=== PATIENT | male | born 1980 | race Caucasian/White ===

== ENCOUNTER 2016-05-07 07:19 | Emergency (ER) | payer BC, SELFPAY ==
[~2016-05-07] VITALS: Ht 182.9 cm; Wt 86.2 kg
[2016-05-07] MEDS ORDERED: IBUP80TA PO (08:52)
[2016-05-07 08:58] VITALS: BP 141/88
--- NOTE | 2016-05-07 10:16 | REP ---
RIGHT RIB SERIES: Five views of the right ribs are performed. No fracture or bone lesion is seen of the right ribs. An accompanying view of the chest demonstrates no acute infiltrate. There is no pneumothorax or pleural effusion identified. The heart is normal in size. IMPRESSION: No evidence of right rib fracture. Signed by Blas Francisco MD 05/07/2016 08:30 P
== END 2016-05-07 08:59 | disposition home or self-care (01) ==
LOC: M ED 07:55
DX: S23.41XA Sprain of ribs, initial encounter (principal); X58.XXXA Exposure to other specified factors, initial encounter; Y92.89 Other specified places as the place of occurrence of the external cause; Y93.89 Activity, other specified; Y99.8 Other external cause status

== ENCOUNTER 2016-08-27 17:19 | Emergency (ER) | payer SELFPAY ==
[~2016-08-27] VITALS: Ht 182.9 cm; Wt 89.5 kg
[2016-08-27 17:19] VITALS: BP 132/84
[~2016-08-27 17:19] MED LIST: IBUP80TA PO
[2016-08-27] MEDS ORDERED: NAPROXEN 250 MG TAB PO ONE (18:00)
[2016-08-27] MEDS ORDERED: PRED20TA PO (18:52)
[2016-08-27] MEDS ORDERED: NAPR500T PO (18:52)
--- NOTE | 2016-08-27 19:08 | REP ---
LEFT FOOT SERIES COMPLETE: 08/27/2016. Clinical history: Pain and swelling left foot. Findings: Four views of the foot show subtalar joints intact. No heel spurs. Talus and calcaneus unremarkable. Distal tibia and fibula without gross fracture. Tarsal bones and articulations and metatarsals are intact. MTP and IP joints as well as phalanges also grossly intact. Impression: 1. No visible or displaced fracture, avulsion, subluxation, foreign body or other acute bony finding. No heel spurs. Signed by Efraín Menard MD 08/27/2016 08:50 P
== END 2016-08-27 19:05 | disposition home or self-care (01) ==
LOC: M ED 19:01
DX: M65.272 Calcific tendinitis, left ankle and foot (principal); Z87.891 Personal history of nicotine dependence

== ENCOUNTER 2017-03-05 15:51 | Emergency (ER) | payer BC, SELFPAY ==
[2017-03-05] MEDS: PERCOCET 5MG/325MG TAB PO (17:57)
== END 2017-03-05 18:55 | disposition home or self-care (01) ==
LOC: M ED 15:51
DX: M25.551 Pain in right hip (principal); Z87.891 Personal history of nicotine dependence
CPT/HCPCS: 73502

== ENCOUNTER 2018-01-11 13:06 | Emergency (ER) | payer SELFPAY, BC | END 2018-01-11 15:23 | disposition home or self-care (01) | LOC: M ED 13:06 | DX: M25.562 Pain in left knee (principal); X58.XXXA Exposure to other specified factors, initial encounter; Y92.099 Unspecified place in other non-institutional residence as the place of occurrence of the external cause; Y93.01 Activity, walking, marching and hiking; Y99.9 Unspecified external cause status; R51 Headache; Z96.652 Presence of left artificial knee joint | CPT/HCPCS: 73560 ==

== ENCOUNTER 2018-08-09 07:55 | Emergency (ER) | payer SELFPAY ==
[~2018-08-09] VITALS: Ht 185.4 cm; Wt 96.2 kg
[~2018-08-09 07:55] MED LIST changes: +IBUP-1022 PO; +NAPR-837 PO; +PERC5TAB12 PO; +PRED20TA PO
[2018-08-09] MEDS ORDERED: NS 1,000 ML IV ONE (08:30)
[2018-08-09 08:40] LABS: BASO % 0.7 % (0.0-1.0); EOS # 0.1 10^3/uL (0.0-0.50); EOS % 2.3 % (0.0-3.0); HEMATOCRIT 43.5 % (42.0-52.0); HEMOGLOBIN 15.2 g/dl (13.5-17.5); LYMPH # 1.8 10^3/uL (1.5-4.5); LYMPH % 29.5 % (24.0-44.0); MEAN CORPUSCULAR HGB CONC 34.9 g/dl (32.0-36.5); MEAN CORPUSCULAR VOLUME 88.8 fl (80.0-96.0); MONO # 0.7 10^3/uL (0.0-0.8); MONO % 11.4 % (0.0-5.0); NEUTROPHILS # 3.4 10^3/uL (1.8-7.7); NEUTROPHILS % 55.9 % (36.0-66.0); PLATELET COUNT, AUTOMATED 233 10^3/uL (150-450)
[2018-08-09 09:19] LABS: ALBUMIN 4.1 GM/DL (3.2-5.2); ALT/SGPT 61 U/L (12-78); BILIRUBIN,DIRECT 0.1 MG/DL (0.0-0.2); BILIRUBIN,TOTAL 0.5 MG/DL (0.2-1.0); BLOOD UREA NITROGEN 11 MG/DL (7-18); CALCIUM LEVEL 8.8 MG/DL (8.5-10.1); CARBON DIOXIDE LEVEL 24 MEQ/L (21-32); CHLORIDE LEVEL 108 MEQ/L (98-107); CPK CREATINE PHOSPHOKINASE 527 U/L (39-308); CREATININE FOR GFR 0.89 MG/DL (0.70-1.30); GLOMERULAR FILTRATION RATE > 60.0 (>60); GLUCOSE, FASTING 97 MG/DL (70-100); LIPASE 81 U/L (73-393); MB/CK RELATIVE INDEX 0.51 (< OR =4); NT-PRO BNP < 5 PG/ML (<125); POTASSIUM SERUM 3.7 MEQ/L (3.5-5.1); SODIUM LEVEL 142 MEQ/L (136-145); TOTAL PROTEIN 7.4 GM/DL (6.4-8.2); TROPONIN I < 0.02 NG/ML (< 0.10)
--- NOTE | 2018-08-09 09:23 | REP ---
CHEST, SINGLE VIEW: There is no evidence of acute infiltrate. No pleural effusion is seen. The heart is normal in size. The mediastinal silhouette is unremarkable. The visualized osseous structures are intact. IMPRESSION: No acute pulmonary disease. Electronically Signed by Blas Francisco MD 08/10/2018 08:52 A
[2018-08-09] MEDS ORDERED: ISOVUE-370 76% 100ML VIAL (Q9967) As Ordered ONE (09:24)
[2018-08-09] MEDS ORDERED: KETOROLAC 30 MG/ML VIAL (J1885) IV ONE (10:15)
--- NOTE | 2018-08-09 10:32 | REP ---
CT ANGIOGRAM CHEST: CT ANGIO CHEST: TECHNIQUE: Axial contrast enhanced images from the thoracic inlet to the upper abdomen using 100 mL Isovue 370 intravenous contrast material with multiplanar reformations. There is no CT evidence of pulmonary embolism. There is no thoracic aortic aneurysm or dissection. There is no mediastinal, hilar, or chest wall lymphadenopathy. Heart is normal in size. There is no pleural or pericardial effusions. There is focal fatty infiltration of the liver along the fissure for the ligamentum teres. Lung show no infiltrate. IMPRESSION: No CT evidence of pulmonary embolism or aortic dissection. No other acute finding. Electronically Signed by Blas Francisco MD 08/10/2018 08:55 A
[2018-08-09] MEDS ORDERED: IBUP-1022 PO (10:40)
[2018-08-09] MEDS ORDERED: ALBU17IN2 INH (10:43)
[2018-08-09 10:59] VITALS: BP 123/83
--- NOTE | 2018-08-09 20:00 | ECGEPIP ---
[facility] - ED Test Date: 2018-08-09 Pat Name: ROLDAN ALFREDO Department: Room: - Gender: Male [employer]: pmo : [id number] Requested By: Karen Collazo Order Number: [id number] Reading MD: Karen Collazo Measurements Intervals [place] Rate: 87 P: 68 MT: 156 QRS: 9 QRSD: 100 T: QT: 372 QTc: 449 Interpretive Statements SINUS RHYTHM WITH OCCASIONAL VENTRICULAR PREMATURE COMPLEXES NO PRIOR FOR COMPARISON Electronically Signed on 08-09-2018 19:59:59 EDT by Karen Collazo
== END 2018-08-09 11:06 | disposition home or self-care (01) ==
LOC: M ED 07:55
DX: J40 Bronchitis, not specified as acute or chronic (principal); R09.1 Pleurisy; Z87.891 Personal history of nicotine dependence
CPT/HCPCS: 71045; 71275; 80048; 80076; 82550; 82553; 83690; 83880; 84443; 84484; 85025; 87040; 93005; 93041; 94760; 96361; 96374; 99284; J1885; Q9967

== ENCOUNTER 2019-09-21 13:02 | Emergency (ER) | payer MEDICAID, SELFPAY ==
[~2019-09-21] VITALS: Ht 182.9 cm; Wt 100.3 kg
[~2019-09-21 13:02] MED LIST changes: +PROV108A INH
[2019-09-21] MEDS ORDERED: NS 1,000 ML IV ONE (13:30)
--- NOTE | 2019-09-21 14:18 | REP ---
CHEST, SINGLE VIEW: There is no evidence of acute infiltrate. No pleural effusion is seen. The heart is normal in size. The mediastinal silhouette is unremarkable. The visualized osseous structures are intact. IMPRESSION: No acute pulmonary disease. Electronically Signed by Blas Francisco MD 09/24/2019 09:40 A
[2019-09-21 16:37] VITALS: BP 140/91
== END 2019-09-21 17:02 | disposition home or self-care (01) ==
LOC: M ED 13:02
DX: J06.9 Acute upper respiratory infection, unspecified (principal); I10 Essential (primary) hypertension

== ENCOUNTER → 2020-05-05 | Outpatient (CLI) | payer BC ==
--- NOTE | 2020-05-05 14:07 | REP ---
INDICATION: R SHOULDER INJURY COMPARISON: None. TECHNIQUE: Internal rotation, external rotation, and Y view. FINDINGS: No acute fracture or dislocation. The acromioclavicular and glenohumeral joints are intact. No periarticular calcifications or degenerative changes are appreciated. Sub acromial space is normal. Surrounding soft tissues are unremarkable. IMPRESSION: Normal right shoulder radiographs. <Electronically signed by David Blanton > 05/05/20 0422
== END ==
LOC: M RAD 13:26
PROVIDERS: ATTEND Physician Assistant Medical
DX: S40.011A Contusion of right shoulder, initial encounter (principal); X58.XXXA Exposure to other specified factors, initial encounter; Y92.9 Unspecified place or not applicable

== ENCOUNTER 2020-08-03 12:12 | Emergency (ER) | payer BC ==
[~2020-08-03] VITALS: Ht 182.9 cm; Wt 100.0 kg
[2020-08-03] MEDS ORDERED: GABA-1171 (12:28)
[2020-08-03] MEDS ORDERED: CYCLOBENZAPRINE 10MG TABLET PO ONE (13:05)
[2020-08-03] MEDS ORDERED: KETOROLAC 30 MG/ML 1ML VIAL IM ONE (13:05)
--- NOTE | 2020-08-03 14:21 | REP ---
INDICATION: pain, fall COMPARISON: None. TECHNIQUE: AP and lateral views of the lumbosacral spine. FINDINGS: Two views of the lumbosacral spine demonstrate satisfactory alignment and lordosis without acute fracture / compression injury or subluxation. IMPRESSION: 1. No acute fracture / compression injury or subluxation. <Electronically signed by David Blanton > 08/03/20 [id number]
--- NOTE | 2020-08-03 14:22 | REP ---
INDICATION: pain, fall COMPARISON: None. TECHNIQUE: Frontal view of the chest with four views of the right hemithorax. FINDINGS: Frontal view of the chest demonstrates no acute cardiopulmonary process, contusion, effusion, or pneumothorax. Multiple views of the right hemithorax demonstrates no acute rib fracture/injury or pathology. IMPRESSION: Normal rib series. <Electronically signed by David Blanton > 08/03/20 0925
--- NOTE | 2020-08-03 14:22 | REP ---
INDICATION: pain, fall COMPARISON: None. TECHNIQUE: AP, lateral, and swimmers views. FINDINGS: Alignment and kyphosis is maintained. Vertebral bodies intact. No acute fracture / compression injury or subluxation. No degenerative changes. Paravertebral soft tissues are normal. IMPRESSION: Normal thoracic spine series. <Electronically signed by David Blanton > 08/03/20 [id number]
[2020-08-03] MEDS ORDERED: CYCL5TAB PO (14:46)
[2020-08-03] MEDS ORDERED: KETO10TAB PO (14:46)
[2020-08-03 15:08] VITALS: BP 134/92
== END 2020-08-03 15:13 | disposition home or self-care (01) ==
LOC: M ED 12:12
DX: M54.9 Dorsalgia, unspecified (principal)
CPT/HCPCS: 71101; 72072; 72100; 99283; J1885

== ENCOUNTER 2023-01-23 20:34 | Emergency (ER) | payer BC, SELFPAY ==
[~2023-01-23] VITALS: Ht 182.9 cm; Wt 93.8 kg
[~2023-01-23 20:34] MED LIST changes: +ALBU6.7H6 INH; +CYCL5TAB PO; +GABA-1171; +KETO10TAB PO; -PROV108A INH
[2023-01-23 20:35] VITALS: BP 147/92; TEMP 98.2; O2SAT 98
[2023-01-23 22:01] LABS: BASO % 0.2 % (0.0-1.0); EOS % 0.4 % (0.0-3.0); HEMATOCRIT 44.5 % (42.0-52.0); HEMOGLOBIN 15.3 g/dl (13.5-17.5); LYMPH # 1.6 10^3/uL (1.5-5.0); MEAN CORPUSCULAR HEMOGLOBIN 30.4 pg (27.0-33.0); MEAN CORPUSCULAR HGB CONC 34.4 g/dl (32.0-36.5); MEAN CORPUSCULAR VOLUME 88.5 fl (80.0-96.0); MONO # 0.5 10^3/uL (0.0-0.8); MONO % 4.9 % (2.0-8.0); NEUTROPHILS # 7.4 10^3/uL (1.5-8.5); NEUTROPHILS % 77.2 % (36.0-66.0); PLATELET COUNT, AUTOMATED 249 10^3/uL (150-450); RED BLOOD COUNT 5.03 10^6/uL (4.30-6.10); WHITE BLOOD COUNT 9.6 10^3/uL (4.0-10.0)
[2023-01-23 22:24] LABS: LIPASE 35 U/L (12-53)
[2023-01-23 22:26] LABS: ALBUMIN 4.1 G/DL (3.2-5.2); ALKALINE PHOSPHATASE 92 U/L (46-116); ALT/SGPT 36 U/L (7.0-40); AST/SGOT 20 U/L (<34); BILIRUBIN,DIRECT < 0.1 MG/DL (<0.4); BILIRUBIN,TOTAL 0.3 MG/DL (0.3-1.2); BLOOD UREA NITROGEN 11 MG/DL (9-23); CALCIUM LEVEL 8.9 MG/DL (8.5-10.1); CARBON DIOXIDE LEVEL 26 MMOL/L (20-31); CHLORIDE LEVEL 106 MMOL/L (98-107); GLOMERULAR FILTRATION RATE > 60.0 (>60); GLUCOSE, FASTING 110 MG/DL (60-100); POTASSIUM SERUM 3.8 MMOL/L (3.5-5.1); SODIUM LEVEL 141 MMOL/L (136-145); TOTAL PROTEIN 7.2 G/DL (5.7-8.2)
[2023-01-23] MEDS ORDERED: NS 1,000 ML IV ONE (22:55)
[2023-01-23 23:08] LABS: CK-MB VALUE MASS < 1.0 NG/ML (<3.6)
[2023-01-23 23:10] LABS: CPK CREATINE PHOSPHOKINASE 274 U/L (46-171); MB/CK RELATIVE INDEX 0.36 (< OR =4)
[2023-01-23] MEDS ORDERED: ISOVUE-370 76% 100ML VIAL As Ordered ONE (23:40)
[2023-01-24 00:34] LABS: CK-MB VALUE MASS < 1.0 NG/ML (<3.6)
[2023-01-24 00:35] LABS: CPK CREATINE PHOSPHOKINASE 245 U/L (46-171)
[2023-01-24] MEDS ORDERED: cefTRIAXone SOD 1 GM in D5W MINI-BAG PLUS 50 ML IV ONE (03:35)
[2023-01-24] MEDS ORDERED: CEFD300C42 PO (03:41)
== END 2023-01-24 04:52 | disposition home or self-care (01) ==
LOC: M ED 20:34
DX: N10 Acute pyelonephritis (principal); S22.000A Wedge compression fracture of unspecified thoracic vertebra, initial encounter for closed fracture
CPT/HCPCS: 71275; 74177; 80048; 80076; 81001; 82550; 82553; 83690; 84484; 85025; 87086; 93005; 93041; 94760; 96361; 96365; 99284; J0696; Q9967

== ENCOUNTER 2023-01-27 18:24 | Emergency (ER) | payer BC, SELFPAY ==
[~2023-01-27] VITALS: Ht 182.9 cm; Wt 90.9 kg
[~2023-01-27 18:24] MED LIST changes: +CEFD300C42 PO
[2023-01-27 19:02] LABS: BASO % 0.3 % (0.0-1.0); EOS # 0.1 10^3/uL (0.0-0.5); EOS % 1.3 % (0.0-3.0); HEMATOCRIT 47.4 % (42.0-52.0); HEMOGLOBIN 16.5 g/dl (13.5-17.5); LYMPH # 2.6 10^3/uL (1.5-5.0); LYMPH % 33.5 % (24.0-44.0); MEAN CORPUSCULAR HEMOGLOBIN 30.2 pg (27.0-33.0); MEAN CORPUSCULAR HGB CONC 34.8 g/dl (32.0-36.5); MEAN CORPUSCULAR VOLUME 86.8 fl (80.0-96.0); MONO # 0.5 10^3/uL (0.0-0.8); MONO % 6.7 % (2.0-8.0); NEUTROPHILS # 4.5 10^3/uL (1.5-8.5); NEUTROPHILS % 57.9 % (36.0-66.0); PLATELET COUNT, AUTOMATED 264 10^3/uL (150-450); RED BLOOD COUNT 5.46 10^6/uL (4.30-6.10); WHITE BLOOD COUNT 7.8 10^3/uL (4.0-10.0)
[2023-01-27 19:27] LABS: BLOOD UREA NITROGEN 10 MG/DL (9-23); CALCIUM LEVEL 9.2 MG/DL (8.5-10.1); CARBON DIOXIDE LEVEL 28 MMOL/L (20-31); CHLORIDE LEVEL 108 MMOL/L (98-107); CREATININE FOR GFR 0.81 MG/DL (0.70-1.30); GLOMERULAR FILTRATION RATE > 60.0 (>60); GLUCOSE, FASTING 102 MG/DL (60-100); POTASSIUM SERUM 4.4 MMOL/L (3.5-5.1); SODIUM LEVEL 143 MMOL/L (136-145)
[2023-01-27] MEDS ORDERED: KETOROLAC 30 MG/ML 1ML VIAL IV ONE (20:50)
[2023-01-27] MEDS ORDERED: ONDANSETRON 4MG 2ML VIAL IV ONE (20:50)
[2023-01-27] MEDS ORDERED: NS 1,000 ML IV ONE (20:50)
[2023-01-27 21:08] LABS: LIPASE 34 U/L (12-53)
[2023-01-27 21:10] LABS: ALBUMIN 4.1 G/DL (3.2-5.2); ALKALINE PHOSPHATASE 96 U/L (46-116); ALT/SGPT 59 U/L (7.0-40); AST/SGOT 50 U/L (<34); BILIRUBIN,DIRECT 0.1 MG/DL (<0.4); BILIRUBIN,TOTAL 0.5 MG/DL (0.3-1.2); TOTAL PROTEIN 7.5 G/DL (5.7-8.2)
[2023-01-27] MEDS ORDERED: MORPHINE 4 MG/ML 1ML VIAL IV ONE (22:40)
[2023-01-27] MEDS ORDERED: ACETAMINOPHEN *IV* 1,000 MG in IV 1 EA IV ONE (23:40)
[2023-01-27] MEDS ORDERED: IBUP-1022 PO (23:58)
[2023-01-27] MEDS ORDERED: ONDA4TAB6 PO (23:58)
[2023-01-28 00:09] VITALS: BP 116/77; TEMP 98.3; O2SAT 98
== END 2023-01-28 00:05 | disposition home or self-care (01) ==
LOC: M ED 18:24 → EDBD 18:24 → M ED 01-28 00:05
DX: K80.66 Calculus of gallbladder and bile duct with acute and chronic cholecystitis without obstruction (principal); I10 Essential (primary) hypertension; Z79.83 Long term (current) use of bisphosphonates; Z79.2 Long term (current) use of antibiotics; Z79.1 Long term (current) use of non-steroidal anti-inflammatories (NSAID)
CPT/HCPCS: 74176; 76705; 80048; 80076; 81001; 83690; 85025; 96361; 96374; 96375; 99285; J1885; J2405

== ENCOUNTER → 2023-01-31 | Outpatient (CLI) | payer SELFPAY ==
[~2023-01-31] MED LIST changes: +ONDA4TAB6 PO
== END ==
LOC: M SOG 07:49
PROVIDERS: ATTEND Orthopaedic Surgery
DX: M54.6 Pain in thoracic spine (principal); Z53.9 Procedure and treatment not carried out, unspecified reason

== ENCOUNTER → 2023-05-04 | Outpatient (CLI) | payer BC ==
[~2023-05-04] MED LIST changes: +CEFD1CAP9 PO; -CEFD300C42 PO
== END ==
LOC: M RAD 11:10
PROVIDERS: ATTEND Surgery
DX: R10.10 Upper abdominal pain, unspecified (principal)
CPT/HCPCS: 78227; A9537

== ENCOUNTER 2023-06-09 10:27 | Day surgery (SDC) | payer BC ==
[~2023-06-09] VITALS: Ht 182.9 cm; Wt 91.2 kg
[2023-06-09] MEDS ORDERED: LR 1,000 ML IV SCH ×2 (11:20→14:25)
[2023-06-09] MEDS ORDERED: LIDOCAINE 2% 100MG/5ML SDV (FOR ANES.) As Ordered ONE (11:28)
[2023-06-09] MEDS ORDERED: propofoL 200 MG/20 ML VIAL As Ordered ONE (11:28)
[2023-06-09] MEDS ORDERED: SUGAMMADEX SODIUM 500 MG/5 ML VIAL (BRIDION) As Ordered ONE (11:28)
[2023-06-09] MEDS ORDERED: MIDAZOLAM INJ 2MG/2ML VIAL As Ordered ONE (11:28)
[2023-06-09] MEDS ORDERED: ROCURONIUM BROMIDE 50MG/5ML VIAL As Ordered ONE (11:28)
[2023-06-09] MEDS ORDERED: fentaNYL 100 MCG/2 ML INJECTION As Ordered ONE (11:28)
[2023-06-09] MEDS ORDERED: ONDANSETRON 4MG 2ML VIAL As Ordered ONE (11:29)
[2023-06-09] MEDS ORDERED: KETOROLAC 60MG 2ML VIAL As Ordered ONE (11:29)
[2023-06-09] MEDS: INDOCYANINE GREEN 25MG VIAL (IC-GREEN) IV ONE (12:20)
[2023-06-09] MEDS ORDERED: ACETAMINOPHEN 1000MG 100ML IV BAG As Ordered ONE (12:46)
[2023-06-09] MEDS: HEPARIN SOD (PORCINE) 5000UNITS/ML 1ML VIAL/SYRINGE SQ ONE (12:49)
[2023-06-09] MEDS: ceFAZolin SOD 2 GM in IV 1 EA IV ONE (12:50)
[2023-06-09] MEDS ORDERED: HYDROmorphone HCL 2MG/ML 1ML VIAL As Ordered ONE (13:17)
[2023-06-09] MEDS ORDERED: PHENYLephrine 500MCG 5ML (100MCG/ML) SYRINGE As Ordered ONE (13:18)
[2023-06-09] MEDS ORDERED: ePHEDrine SULFATE 25 MG/5 ML(5MG/ML) SYRINGE As Ordered ONE (13:18)
[2023-06-09] MEDS ORDERED: fentaNYL 100 MCG/2 ML INJECTION IV PRN (14:25)
[2023-06-09] MEDS ORDERED: ONDANSETRON 4MG 2ML VIAL IV PRN (14:25)
[2023-06-09] MEDS ORDERED: HYDROMORPHONE HCL 0.5 MG/ 0.5 ML SYRINGE IV PRN (14:25)
[2023-06-09] MEDS: oxyCODONE 5MG TAB PO PRN (14:36)
[2023-06-09] MEDS ORDERED: PERCOCET PO (14:42)
[2023-06-09 15:42] VITALS: BP 127/76; TEMP 97.1; O2SAT 97
== END 2023-06-09 16:00 | disposition home or self-care (01) ==
LOC: M SDC 10:27
PROVIDERS: ATTEND Surgery
DX: K81.1 Chronic cholecystitis (principal); K82.8 Other specified diseases of gallbladder; Z87.891 Personal history of nicotine dependence; Z91.018 Allergy to other foods
CPT/HCPCS: 47562; 88304; J0131; J0665; J0690; J1100; J1170; J1885; J2250; J2371; J2405; J3010; Q9968; S2900

== ENCOUNTER 2024-03-16 21:43 | Emergency (ER) | payer BC ==
[~2024-03-16] VITALS: Ht 182.9 cm; Wt 104.3 kg
[~2024-03-16 21:43] MED LIST changes: -CYCL5TAB PO; +CYCL5TAB4 PO; +ONDA-282 PO; -ONDA4TAB6 PO; +PERCOCET PO
[2024-03-17] MEDS: diazePAM 5MG TABLET PO ONE (00:52)
[2024-03-17] MEDS: KETOROLAC 60MG 2ML VIAL IM ONE (00:52)
[2024-03-17] MEDS: LIDOCAINE 5% (LIDODERM) PATCH TD ONE (00:52)
[2024-03-17 01:37] VITALS: BP 146/98; TEMP 98.6; O2SAT 98
[2024-03-17] MEDS ORDERED: NAPR-837 PO (01:48)
[2024-03-17] MEDS ORDERED: METH-1164 PO (01:48)
[2024-03-17] MEDS ORDERED: LIDO5CRE6 TOP (01:48)
== END 2024-03-17 01:56 | disposition home or self-care (01) ==
LOC: M ED 21:43
DX: S46.919A Strain of unspecified muscle, fascia and tendon at shoulder and upper arm level, unspecified arm, initial encounter (principal); X50.0XXA Overexertion from strenuous movement or load, initial encounter; I10 Essential (primary) hypertension; Y92.9 Unspecified place or not applicable; Y93.89 Activity, other specified; Y99.9 Unspecified external cause status; Z91.018 Allergy to other foods; Z79.1 Long term (current) use of non-steroidal anti-inflammatories (NSAID); Z79.899 Other long term (current) drug therapy
CPT/HCPCS: 71101; 96372; 99283; J1885